=== PATIENT | female | born 1955 ===

== ENCOUNTER 2024-04-28 12:16 | Day surgery (SDC) | payer MEDICARE, BC ==
[~2024-04-28] VITALS: Ht 167.6 cm; Wt 79.4 kg
[~2024-04-28 12:16] MED LIST: Lactated Ringer's 1,000 ML IV ONE; propofoL 50 ML IV ONE
[2024-04-28] MEDS ORDERED: CHOLP (12:37)
[2024-04-28] MEDS ORDERED: LEVSOD25 (12:37)
[2024-04-28] MEDS ORDERED: DIPATR (12:38)
[2024-04-28] MEDS ORDERED: Lactated Ringer's 1,000 ML IV ONE (13:31)
== END 2024-04-28 14:45 | disposition home or self-care (01) ==
LOC: ORSCSDS 12:16
PROVIDERS: Specialist
PROC: 0DB68ZX Excision of Stomach, Via Natural or Artificial Opening Endoscopic, Diagnostic (ICD-10-PCS; principal; 2024-04-28 13:45)
PROC: 0DB58ZX Excision of Esophagus, Via Natural or Artificial Opening Endoscopic, Diagnostic (ICD-10-PCS; principal; 2024-04-28 13:45)
PROC: 0DB98ZX Excision of Duodenum, Via Natural or Artificial Opening Endoscopic, Diagnostic (ICD-10-PCS; principal; 2024-04-28 13:45)
DX: R10.84 Generalized abdominal pain (principal); K21.9 Gastro-esophageal reflux disease without esophagitis; R19.7 Diarrhea, unspecified; K44.9 Diaphragmatic hernia without obstruction or gangrene; K29.80 Duodenitis without bleeding; K29.70 Gastritis, unspecified, without bleeding; R14.0 Abdominal distension (gaseous); Z79.899 Other long term (current) drug therapy
CPT/HCPCS: 88305; 88342; J2704; J7120